=== PATIENT | male | born 1990 | race Hispanic/Latino ===

== ENCOUNTER 2018-10-24 16:10 | Emergency (ER) | payer SELFPAY ==
[~2018-10-24] VITALS: Ht 175.3 cm; Wt 145.1 kg
--- NOTE | 2018-10-24 18:02 | Diagnostic Imaging Report ---
EXAM: ANKLE 3+ VIEWS LEFT DATE: 10/24/2018 4:45 PM INDICATION: Trauma COMPARISON: None FINDINGS: Moderate lateral soft tissue swelling with no distinct fracture or subluxation. The mortise is symmetric. IMPRESSION: Lateral soft tissue swelling with no distinct fracture. Signed by: Dr. Jessee Barrera MD on 10/24/2018 5:58 PM
[2018-10-24 18:48] VITALS: BP 140/92
== END 2018-10-24 18:56 | disposition home or self-care (01) ==
LOC: ER 16:10
DX: M25.572 Pain in left ankle and joints of left foot (principal); S93.402A Sprain of unspecified ligament of left ankle, initial encounter; R26.2 Difficulty in walking, not elsewhere classified; X50.1XXA Overexertion from prolonged static or awkward postures, initial encounter; Y93.01 Activity, walking, marching and hiking
CPT/HCPCS: 99283